=== PATIENT | male | born 1945 | race Caucasian/White ===

== ENCOUNTER 2018-12-01 11:15 | Outpatient (CLI) | payer MEDICARE ==
--- NOTE | 2018-12-01 13:24 | RAD ---
TWO VIEW CHEST: INDICATIONS: Cough. FINDINGS: The lungs appear clear of infiltrate. Heart size is upper normal. Vascular markings are normal. Os seous structures are unremarkable. IMPRESSION: No acute findings. POS: [id number]
== END 2018-12-01 11:16 | disposition home or self-care (01) ==
LOC: BICRAD 11:15
PROVIDERS: ATTEND Family Medicine
DX: R05 Cough (principal)
CPT/HCPCS: 71046; 80053; 80061; 81001; 84153; 84443; 85025